=== PATIENT | male | born 1960 | race Caucasian/White ===

== ENCOUNTER → 2017-09-04 | Day surgery (SDC) | payer BC ==
[2015-06-18 01:08] VITALS: BP 111/80
[~2017-09-04] MED LIST: ALTACE10 MG; METOPROLOL SUCC50 M2 PO; PREDNISONE1 MG; ST. JOSEPH81 M2
== END | disposition home or self-care (01) ==
LOC: MSO 08:40
DX: Z12.11 Encounter for screening for malignant neoplasm of colon (principal); D12.2 Benign neoplasm of ascending colon; D12.8 Benign neoplasm of rectum; I10 Essential (primary) hypertension; Z79.82 Long term (current) use of aspirin
CPT/HCPCS: 00811; J2704; J7120

== ENCOUNTER → 2017-09-11 | Outpatient (CLI) | payer BC ==
[2015-06-18 01:08] VITALS: BP 111/80
== END ==
LOC: RAD 09:15
DX: K76.0 Fatty (change of) liver, not elsewhere classified (principal)

== ENCOUNTER → 2021-10-04 | Outpatient (CLI) | payer BC | LOC: RAD 13:20 | DX: M25.511 Pain in right shoulder (principal); M79.601 Pain in right arm ==